=== PATIENT | female | born 1965 | race Two or more races ===

== ENCOUNTER 2019-01-05 19:09 | Emergency (ER) | payer MEDICARE ==
[~2019-01-05] VITALS: Ht 162.6 cm; Wt 52.3 kg
[2019-01-05 19:32] VITALS: BP 113/85
[2019-01-05] MEDS ORDERED: famotidine 20mg tablet PO ONE (20:30)
[2019-01-05] MEDS ORDERED: LIDOcaine Viscous 15ml cup PO ONE (20:30)
[2019-01-05] MEDS ORDERED: mag hydrox/Alum hydrox/simeth 30ml oral suspension PO ONE (20:30)
[2019-01-05] MEDS ORDERED: simethicone 125mg capsule PO ONE (21:40)
== END 2019-01-05 22:18 | disposition home or self-care (01) ==
LOC: ER 19:10
DX: K29.70 Gastritis, unspecified, without bleeding (principal); R19.02 Left upper quadrant abdominal swelling, mass and lump; Z88.2 Allergy status to sulfonamides
CPT/HCPCS: 74018; 99284

== ENCOUNTER 2021-01-02 07:29 | Emergency (ER) | payer MEDICARE ==
[~2021-01-02] VITALS: Ht 162.6 cm; Wt 55.3 kg
[2021-01-02 07:42] VITALS: BP 124/58
== END 2021-01-02 08:28 | disposition home or self-care (01) ==
LOC: ER 07:31
DX: B34.9 Viral infection, unspecified (principal); Z20.822 Contact with and (suspected) exposure to COVID-19; R13.10 Dysphagia, unspecified; R07.81 Pleurodynia; M79.7 Fibromyalgia; Z88.2 Allergy status to sulfonamides
CPT/HCPCS: 87635; 99283; C9803

== ENCOUNTER 2024-05-21 13:24 | Emergency (ER) | payer MEDICARE ==
[~2024-05-21] VITALS: Ht 162.6 cm; Wt 48.6 kg
[2024-05-21] MEDS ORDERED: AMOX500C2 PO (14:23)
[2024-05-21] MEDS: amoxicillin 250mg capsule PO ONE (14:30)
[2024-05-21 14:41] VITALS: BP 132/80; PULSE 67; RESP 16; TEMP 97.9; O2SAT 98
== END 2024-05-21 14:43 | disposition home or self-care (01) ==
LOC: ER 13:25
DX: K02.9 Dental caries, unspecified (principal); M79.7 Fibromyalgia; Z88.2 Allergy status to sulfonamides; Z79.2 Long term (current) use of antibiotics
CPT/HCPCS: 99283

== ENCOUNTER 2024-12-02 07:18 | Outpatient (CLI) | payer MEDICARE ==
[2024-12-02] VITALS (22 sets, daily range): BP systolic 54–131; BP diastolic 42–92; PULSE 71–114
== END 2024-12-02 23:59 | disposition home or self-care (01) ==
LOC: CARD DIAG 07:18
PROVIDERS: ATTEND Nurse Practitioner Family
DX: Z00.01 Encounter for general adult medical examination with abnormal findings (principal); F43.23 Adjustment disorder with mixed anxiety and depressed mood; M19.90 Unspecified osteoarthritis, unspecified site; G43.909 Migraine, unspecified, not intractable, without status migrainosus; R42 Dizziness and giddiness; A64 Unspecified sexually transmitted disease; M79.7 Fibromyalgia; R68.84 Jaw pain; R10.10 Upper abdominal pain, unspecified; R91.8 Other nonspecific abnormal finding of lung field; Z13.820 Encounter for screening for osteoporosis; Z12.11 Encounter for screening for malignant neoplasm of colon; M81.0 Age-related osteoporosis without current pathological fracture; R09.A2 Foreign body sensation, throat; D64.9 Anemia, unspecified
CPT/HCPCS: 93660

== ENCOUNTER 2025-07-28 08:53 | Emergency (ER) | payer MEDICARE ==
[~2025-07-28] VITALS: Ht 162.6 cm; Wt 47.9 kg
[2025-07-28 09:05] VITALS: BP 141/53; PULSE 66; O2SAT 99
[2025-07-28 09:40] LABS: URINE HCG NEGATIVE (NEG)
[2025-07-28 09:44] LABS: LEUKOCYTE ESTERASE ,URINE NEGATIVE (Neg); NITRITES, URINE NEGATIVE (Neg); OCCULT BLOOD,URINE NEGATIVE (Neg)
[2025-07-28 09:47] LABS: UA COLLECTION TYPE CLN CATCH MIDSTREAM
[2025-07-28 10:34] LABS: MEAN PLATELET VOLUME 8.9 FL (7.4-10.4); RED CELL DISTRIBUTION WIDTH 12.6 % (11.5-14.5)
[2025-07-28 10:46] VITALS: RESP 16
[2025-07-28 10:49] LABS: CREATININE 0.48 MG/DL (0.40-0.90); TOTAL CARBON DIOXIDE 26.4 MMOL/L (24-32); eCRCL 95 ML/MIN; eGFR > 90 ML/MIN
--- NOTE | 2025-07-28 12:46 | RADIOLOGY REPORT ---
INDICATION: RUQ post food intake x several weeks. TECHNIQUE: Multiple real-time sonographic images were obtained of the right upper quadrant. COMPARISON: None FINDINGS: Liver measures 14.1 cm. Echogenic lesion in the right hepatic lobe measures 2.5 cm. There is no intrahepatic or extrahepatic ductal dilatation. The common duct measures 0.2 cm. The gallbladder is without evidence of stone or sludge. The gallbladder wall measures 0.2 cm and is within normal limits. The right kidney measures 10.2 cm. The right kidney is normal in contour, size, and shape. The echogenicity is normal. There is no hydronephrosis. The pancreas is not well visualized due to overlying bowel gas. IMPRESSION: Echogenic lesion in the right hepatic lobe measures 2.5 cm. This is incompletely characterized but may represent a hemangioma. This can be further evaluated with nonemergent CT or MRI liver mass protocol if clinically indicated. No acute findings.
--- NOTE | 2025-07-28 13:37 | Physician Documentation ---
History of Present Illness Chief Complaint: Abdominal Pain Stated Complaint: ABDOMINAL PAIN Time Seen by MD: 10:30 Primary Medical Doctor: Jackie jett Mode of Arrival: [facility] HPI Patient is a very pleasant 60-year-old female that presents to the emergency department for evaluation of right upper quadrant abdominal pain intermittently over several months. Patient reports that she has been able to correlate the pain with eating whole fat yogurt. Reports that after she eats yogurt she has significant right upper quadrant abdominal pain that is self-resolving after some time. Patient reports that this morning the pain lasted a little bit longer than it has previously. Patient reports that she has concerns because her dad due to common bile duct cancer. Patient denies fevers chills nausea vomiting diarrhea in general but does report some episodes of nausea associated around the time of the significant pain. Patient is currently without pain or any discomfort no fevers vital signs are normal here in the emergency department. Medication Reconciliation Allergies: Coded Allergies: Sulfa (Sulfonamide Antibiotics) (Verified Allergy, Unknown, 07/28/25) Past Medical History Past Medical History: *GI/HEPATOBILIARY*, Fibromyalgia Past Surgical History: noncontributory Drug Use: none Lives with: Spouse Lives In: Home Review of Systems ROS As stated above in the HPI, otherwise all systems are reviewed and negative. Physical Exam Vital Signs: Temperature: 97.7, Source: Temporal, Heart Rate: 66, Respiratory Rate: 16, BP: 141/53, Pulse Oximetry: 99, Weight: 47.900 Oxygen Flow Rate: 0 Physical Exam VITALS: Reviewed and as above. GENERAL: Alert, no apparent distress. HEENT: Normocephalic, atraumatic, PERRL, EOMI, dry mucosa, no erythema RESPIRATORY: Lungs clear, normal breath sounds, no respiratory distress. CHEST: No accessory muscle use, no retractions CV: Regular rate, rhythm, no edema, no murmur, No: JVD GI: Soft, non-tender, bowels sounds present, no rebound, guarding, or rigidity BACK: No CVA tenderness, or swelling MUSCULOSKELETAL No deformities, no edema SKIN: Warm and dry, no rash NEURO: Oriented x4, No motor or sensory deficit PSYCH: Normal mood and affect, no agitation Progress Results/Orders Results/Orders Orders - RUSSELL BRITO Ultrasound Of Abdomen (07/28/25 11:56) Completed Orders - RUSSELL BRITO Ultrasound Of Abdomen (07/28/25 11:56) Vital Signs 07/28/25 07/28/25 09:05 10:46 Temp 97.7 Pulse 66 Resp 16 16 B/P (MAP) 141/53 Pulse Ox 99 O2 Flow Rate 0 Laboratory Tests Test 07/28/25 09:00 07/28/25 10:09 Urine Specimen Description Cln catch midstream Urine Color Yellow Urine Clarity Clear Urine pH 5.5 Urine Specific [place] 1.010 Urine Protein Negative Urine Glucose (UA) Negative Urine Ketones Negative Urine Occult Blood Negative Urine Nitrite Negative Urine Bilirubin Negative Urine Urobilinogen 0.2 Urine Leukocyte Esterase Negative Urine Culture Indicated Not ind Volume Urine Centrifuged 10 ml Urine HCG, Qualitative Negative Urine Comment White Blood Count 4.0 L Red Blood Count 3.93 L Hemoglobin 12.7 Hematocrit 37.4 Mean Corpuscular Volume 95.0 Mean Corpuscular Hemoglobin 32.3 H Mean Corpuscular Hemoglobin Concent 33.9 Red Cell Distribution Width 12.6 Platelet Count 268 Mean Platelet Volume 8.9 Neutrophils (%) (Auto) 52.1 Lymphocytes (%) (Auto) 37.7 Monocytes (%) (Auto) 7.4 Eosinophils (%) (Auto) 1.5 Basophils (%) (Auto) 1.3 H Neutrophils # (Auto) 2.1 Lymphocytes # (Auto) 1.5 Monocytes # (Auto) 0.3 Eosinophils # (Auto) 0.1 Basophils # (Auto) 0.1 CBC Comment Sodium Level 138 Potassium Level 4.4 Chloride Level 101 Carbon Dioxide Level 26.4 Anion Gap 11 Blood Urea Nitrogen 8 Creatinine 0.48 Estimated GFR/1.73 m2 > 90 BUN/Creatinine Ratio 16.7 Glucose Level 96 Calcium Level 8.8 Total Bilirubin 0.8 Aspartate Amino Transf (AST/SGOT) 21 Alanine Aminotransferase (ALT/SGPT) 22 Alkaline Phosphatase 88 Total Protein 7.6 Albumin 4.2 Globulin 3.4 Albumin/Globulin Ratio 1.2 Lipase 56 Chemistry Comments Medical Decision Making Additional information obtaine: other Findings Chief Complaint: Intermittent right upper quadrant abdominal pain, several months duration Medical Decision Making: This is a very pleasant 60-year-old female presenting to the emergency department for evaluation of intermittent right upper quadrant abdominal pain over several months. The patient reports pain correlated with eating whole-fat yogurt, typically self-resolving, though this morning the pain lasted longer than usual. She expresses concern given her father's history of common bile duct cancer. Complexity of Data Reviewed: The patient's symptom pattern of postprandial right upper quadrant pain raises concern for biliary pathology, most commonly cholecystitis or choledocholithiasis. However, over one-third of patients initially thought to have acute cholecystitis actually have right upper quadrant pain attributable to other causes. The patient's family history of biliary tract cancer warrants consideration, as biliary tract cancers commonly present with right upper quadrant pain, though jaundice and cholestasis are more typical presenting features. The patient denies fevers, chills, vomiting, and diarrhea. She reports some episodes of nausea associated with significant pain episodes. Notably, she is currently asymptomatic with no pain or discomfort and has normal vital signs in the emergency department. Right upper quadrant ultrasound was performed and demonstrated an echogenic lesion in the right hepatic lobe measuring 2.5 cm, incompletely characterized but possibly representing a hemangioma. The remaining ultrasound findings were without abnormality, including normal gallbladder appearance without evidence of cholelithiasis, cholecystitis, or gallbladder wall thickening, no biliary ductal dilatation, and normal appearance of visualized portions of the liver, pancreas, and kidneys. Risk of Complications: The patient's current clinical stability with normal vital signs and absence of fever argues against acute cholecystitis or cholangitis at this time. The absence of jaundice makes acute biliary obstruction or malignancy less likely, though these cannot be excluded without imaging. Given her family history of common bile duct cancer (cholangiocarcinoma), further evaluation is warranted despite current clinical stability. Management Plan: The patient is hemodynamically stable, afebrile, and currently pain-free. She does not require emergent intervention at this time. Ultrasonography is the preferred initial imaging modality for evaluation of the biliary system in patients with right upper quadrant pain, with sensitivity exceeding 95% for gallbladder stones. However, if initial ultrasonography is negative or equivocal and symptoms persist, multiphasic contrast-enhanced CT or MRI with MRCP should be considered for comprehensive evaluation of hepatobiliary pathology. Given the patient's symptom chronicity, current clinical stability, family history, and the incompletely characterized hepatic lesion, nonemergent outpatient imaging with multiphasic CT or MRI liver mass protocol is appropriate. This will allow for comprehensive evaluation of both biliary pathology and complete characterization of the hepatic lesion. Disposition: The patient is safe for discharge home with close outpatient follow-up. She has been counseled to return to the emergency department for worsening pain, fever, jaundice, persistent vomiting, or any other concerning symptoms. She will follow up with her primary care physician or oral and maxillofacial surgery for coordination of recommended imaging and further evaluation. Assessment: Right upper quadrant abdominal pain, intermittent, likely biliary etiology, currently resolved. Incompletely characterized 2.5 cm echogenic hepatic lesion. Requires outpatient imaging evaluation given chronicity and family history of biliary malignancy. Plan: Discharge home with return precautions. Outpatient multiphasic CT or MRI liver mass protocol. Follow-up with primary care physician or gastroenterology. Differential Dx:Considerations: Bowel obstruction, Cholangitis, Cholelithasis, Gastritis/PUD, Gastroenteritis, Pancreatitis, Urinary tract infection, Urolithiasis, Other, N/A Departure Disposition: 01 HOME / SELF CARE / HOMELESS Impression: Primary Impression: Abdominal pain Condition: Stable Discharge Instructions: Abdominal Pain (Nonspecific), Abdominal Pain, Women Additional Instructions: Your Diagnosis You came to the emergency department today with right upper quadrant (right side) abdominal pain that you have been experiencing on and off for several months. You noticed the pain often happens after eating whole-fat yogurt. Your ultrasound showed a 2.5 cm spot on your liver that may be a hemangioma (a benign collection of blood vessels). The rest of your ultrasound was normal - your gallbladder, bile ducts, and other organs looked healthy. Your vital signs are normal and you are not having pain right now. What This Means Your symptoms of pain after eating fatty foods can be related to your gallbladder or bile ducts, even though the ultrasound looked normal today. Ultrasound is very good at finding gallstones (over 95% accurate), but sometimes other problems need different types of imaging to see clearly. The spot on your liver needs further evaluation with a special CT scan or MRI to make sure it is a hemangioma (which is not dangerous) and not something else. Most liver spots found by accident are benign (not cancer), occurring in up to 15% of patients. Follow-Up Care You Need 1. Imaging Test (Very Important) You need to schedule a multiphasic CT scan or MRI of your liver within the next few weeks. This is not an emergency, but it should be done soon. This special imaging test will help us see the spot on your liver more clearly It will also look more carefully at your gallbladder and bile ducts to find the cause of your pain Call your primary care doctor or oral and maxillofacial surgery (stomach and liver specialist) within 3-5 days to schedule this test 2. Doctor Appointment Schedule a follow-up appointment with your primary care doctor or a oral and maxillofacial surgery within 2-3 weeks to: Review the results of your imaging test Discuss treatment options for your abdominal pain Talk about your family history of bile duct cancer and whether you need any special monitoring What to Do at Home Diet Changes to Try: Avoid or limit high-fat foods like whole-fat yogurt, fried foods, and fatty meats, as these can trigger gallbladder-related pain Keep a food diary to track what foods cause your pain Eat smaller, more frequent meals instead of large meals Pain Management: You may take [id number] pain relievers like acetaminophen (Tylenol) or i buprofen (Advil, Motrin) as directed on the bottle Avoid aspirin unless your doctor has told you to take it When to Return to the Emergency Department Come back to the emergency department or call 911 if you develop any of these symptoms: Severe abdominal pain that does not go away or gets much worse Fever (temperature over 100.4F or 38C) Yellowing of your skin or eyes (jaundice) Persistent vomiting that prevents you from keeping down food or liquids Dark urine or pale/claudia-colored stools Pain that lasts longer than 6 hours without improvement Confusion or change in mental status Important Information About Your Family History Because your father had bile duct cancer, it is important that you follow up with the imaging test and doctor appointments as recommended. While most causes of right upper quadrant pain are not cancer, your family history makes it important to investigate your symptoms thoroughly. Questions to Ask Your Doctor at Follow-Up What did the CT or MRI show about the spot on my liver? What is causing my abdominal pain? Do I need any treatment for my symptoms? Should I have regular screening because of my family history? Are there any other tests I need? Summary You have intermittent right upper quadrant pain that needs further evaluation Your ultrasound found a liver spot that needs a special CT or MRI to characterize The rest of your ultrasound was normal Schedule your imaging test and follow-up appointment within the next few weeks Return to the emergency department if you develop any warning signs listed above Try avoiding high-fat foods to see if this helps your symptoms If you have any questions or concerns, please call your primary care doctor or the emergency department. Referrals: NO PRIMARY CARE PROVIDER (PCP) Education Educated: Patient Educated regarding: diagnosis, treatment, need for follow up Signature Scribe Signature: A Attestation: Scribed for Russell Brito by VIRGINIA Rowe . 07/28/25 13:38 RUSSELL BRITO Jul 28, 2025 13:37
[2025-07-28 13:42] VITALS: TEMP 97.7
== END 2025-07-28 13:43 | disposition home or self-care (01) ==
LOC: ER 08:54
DX: R10.11 Right upper quadrant pain (principal); M79.7 Fibromyalgia; Z88.2 Allergy status to sulfonamides
CPT/HCPCS: 36415; 76700; 80053; 81003; 81025; 83690; 85025; 99284